=== PATIENT | male | born 1945 | race Caucasian/White ===

== ENCOUNTER 2016-12-08 06:16 | Day surgery (SDC) | payer OTHER ==
[2016-12-01 11:32] VITALS: BMI 38.0
[2016-12-08] MEDS ORDERED: BUPIVACAINE HCL/PF 2.5 MG/ML - 30 ML VIAL IJ ONE (06:57)
[2016-12-08] MEDS ORDERED: MIDAZOLAM HCL 2 MG/2 ML SINGLE DOSE VIAL ONE (07:16)
[2016-12-08] MEDS ORDERED: LIDOCAINE 1%/EPI 1:100000 (20 ML MULTI DOSE VIAL) ONE (07:40)
[2016-12-08] MEDS ORDERED: PROPOFOL 20 ML ONE (07:49)
[2016-12-08] MEDS ORDERED: ceFAZolin SODIUM 1 GM VIAL ONE (08:01)
[2016-12-08] MEDS ORDERED: ONDANSETRON 4 MG/2 ML VIAL ONE ×2 (08:12→09:30)
[2016-12-08] MEDS ORDERED: DEXAMETHASONE SOD PHOSPHATE 4 MG/1 ML VIAL ONE (08:12)
[2016-12-08] MEDS ORDERED: LIDOCAINE 1%/EPI 1:100000 (50 ML MULTI DOSE VIAL) INF ONE ×2 (08:26)
[2016-12-08] MEDS ORDERED: ONDANSETRON 4 MG/2 ML VIAL IVPUSH PRN (09:03)
[2016-12-08] MEDS ORDERED: oxyCODONE HCL 5 MG TABLET PO PRN (09:03)
[2016-12-08] MEDS ORDERED: LACTATED RINGERS SOLUTION 1,000 ML IV SCH (09:15)
[2016-12-08] MEDS ORDERED: KETOROLAC TROMETHAMINE 30 MG/1 ML VIAL ONE (09:23)
[2016-12-08] MEDS ORDERED: BUPIVACAINE HCL/PF 0.25% (2.5MG/ML) 10 ML VIAL IJ ONE (09:41)
[2016-12-08 12:00] VITALS: BP 121/72; PULSE 69; TEMP 97.9
--- NOTE | 2016-12-10 18:14 | OP ---
DATE OF OPERATION: 12/08/2016 PREOPERATIVE DIAGNOSIS: Left elbow olecranon bursitis. PROCEDURE: Left elbow excision of olecranon bursa and tophus. POSTOPERATIVE DIAGNOSES: 1. Left elbow olecranon bursitis. 2. Gouty tophus. SURGEON: Humphrey Durant MD COOK HELPER FRUIT: JUSTYN Maxwell, whose skillful assistance was necessary for the safe and timely performance of this procedure. Ms. Chowdhury was able to help provide limb positioning, assist in retraction, as well as assist in the dissection and then subsequent excision of the bursal mass. ANESTHESIA TYPE: General plus local. POSTOPERATIVE CONDITION: Stable. COMPLICATIONS: None. SPECIMENS: One times bursal mass. TOURNIQUET TIME: 54 minutes. INDICATIONS: This is a pleasant, 70-year-old gentleman who has been experiencing many, many years of increasing swelling over the left olecranon bursa. It became increasingly discomforting to him. He had problems just leaning on surfaces. Treatment options including nonoperative management with observation versus operative management with mass excision and olecranon bursectomy were discussed. Operative risks were reviewed in detail including bleeding, infection, neurovascular injury, need for further surgery, postoperative pain and stiffness, recurrence. We discussed medical risks such as heart attack, stroke, DVT, PE, and . I addressed all of these issues with the patient as well as his . They voiced understanding and elected to proceed. DESCRIPTION OF PROCEDURE: Patient was brought to the operating room where general anesthesia was administered. The left upper extremity was prepped and draped in the usual sterile fashion. A preoperative dose of antibiotics was given, and the usual timeout procedure was performed. At this point, an incision was planned out posteriorly just lateral to the point of the olecranon and directly over the mass. The limb was now elevated, and tourniquet was inflated to 250 mmHg. The incision was now carried down through skin, through subcutaneous tissue. Blunt spreading was now used to expose this more superficial aspect of the mass which now showed a chalky white appearance consistent with tophus. Blunt spreading was now carried all the way around the mass to free it up from the surrounding soft tissues. It was directly adherent to the bone over the surface of the olecranon. Care was taken to maintain the thickness of the subcutaneous tissue to help avoid skin necrosis. The remainder of the gouty debris was now debrided from the soft tissues. Some large deposits in the triceps tendon were debrided using the rongeur as well. The olecranon enthesophyte was debrided using the rongeur. The tourniquet was let down now, and any bleeding was controlled using bipolar electrocautery. The subcutaneous tissue was now loosely approximated down to the fascia of the forearm to minimize any space present, and that was done using 2-0 Vicryl. The edges of the subcutaneous tissue were then approximated using 3-0 Vicryl. The skin was closed using a running 4-0 nylon suture. A compressive dressing was placed. Patient was placed into a long-arm splint. He was extubated, transferred to recovery room in a stable condition. HUMPHREY DURANT M.D. [id number]
--- NOTE | 2016-12-13 12:47 | PATH ---
Surgical Pathology Report Patient Name: MARCUS JULIAN [facility]. Rec. #: [id number] /Age/Gender: 1945 (Age: 70) / M Account: [id number] Location: [facility] AMBULATORY Taken: 12/08/2016 Received: 12/09/2016 Reported: 12/13/2016 Physicians: Humphrey Yoon M.D. Specimen(s) Received MASS OF LEFT ELBOW Clinical History Left olecranon bursitis Final Diagnosis ELBOW,LEFT,MASS, EXCISION: FIBROSYNOVIAL TISSUE SHOWING NODULAR DEPOSITS OF CRYSTALLINE MATERIAL SURROUNDED BY FIBROUS TISSUE, HISTIOCYTES AND GIANT CELLS; CONSISTENT WITH GOUTY TOPHI. Electronically Signed Meseret Momin M.D. Gross Description Received in formalin labeled "left elbow mass," is a 5.7 x 5.0 x 3.5 cm intact mass. Sectioning reveals a white pasty substance. Mortgage Loan Officer sections are submitted in 2 cassettes. /12/09/2016 saudi/12/09/2016
== END 2016-12-08 11:50 | disposition home or self-care (01) ==
LOC: FASU 06:16
PROVIDERS: ATTEND Orthopaedic Surgery Sports Medicine
PROC: 0JBH0ZZ Excision of Left Lower Arm Subcutaneous Tissue and Fascia, Open Approach (ICD-10-PCS; 2016-12-08)
PROC: 0MB40ZZ Excision of Left Elbow Bursa and Ligament, Open Approach (ICD-10-PCS; principal; 2016-12-08 08:17)
DX: M70.22 Olecranon bursitis, left elbow (principal); M1A.9XX1 Chronic gout, unspecified, with tophus (tophi)
CPT/HCPCS: 88305-TC; 94760